=== PATIENT | male | born 1980 | race Hispanic/Latino ===

== ENCOUNTER 2019-07-21 16:54 | Emergency (ER) | payer OTHER ==
[2019-07-21] MEDS ORDERED: CEFAZOLIN/SWI 1gm 1 GM/10 ML SYR ONE (17:20)
[2019-07-21] MEDS ORDERED: ONDANSETRON 4 MG/2 ML VIAL ONE (17:20)
[2019-07-21] MEDS ORDERED: MORPHINE 4 MG/ML SYR ONE (17:20)
[2019-07-21] MEDS ORDERED: HYDROMORPHONE HCL 1 MG/ML INJ ONE (18:06)
--- NOTE | 2019-07-21 18:09 | ER ---
Nurse's Notes [facility] Name: Rudolph Lacey Age: 39 yrs Sex: Male : 1980 Arrival Date: 07/21/2019 Time: 16:55 Bed 4 Private MD: Diagnosis: Colles' fracture of left radius-open Presentation: 07/21 17:02 Presenting complaint: Patient states: Fell at work today, injured left wrist. ROM is rb1 limited. Deformity noted to the left wrist with minimal bleeding. Transition of care: patient was not received from another setting of care. Onset of symptoms was July 21, 2019. Risk Assessment: Do you want to hurt yourself or someone else? Patient reports no desire to harm self or others. Initial Sepsis Screen: Does the patient meet any 2 criteria? No. Patient's initial sepsis screen is negative. Does the patient have a suspected source of infection? No. Patient's initial sepsis screen is negative. Care prior to arrival: None. 17:02 Method Of Arrival: Ambulatory [facility] 17:02 Acuity: TRISH 3 rb1 Triage Assessment: 17:07 General: Appears in no apparent distress. Behavior is calm, cooperative, appropriate tw2 for age. Pain: Complains of pain in LEFT wrist. Musculoskeletal: Circulation, motion, and sensation intact. Injury Description: Deformity sustained to right arm. Historical: - Allergies: 17:03 No Known Allergies; rb1 - Home Meds: 17:03 None [Active]; rb1 - PMHx: 17:03 None; rb1 - PSHx: 17:03 None; rb1 - Immunization history:: Adult Immunizations up to date. - Social history:: Smoking status: Patient/guardian denies using tobacco. - Ebola Screening: : Patient negative for fever greater than or equal to 101.5 degrees Fahrenheit, and additional compatible Ebola Virus Disease symptoms. Screenin:06 Abuse screen: Denies threats or abuse. Nutritional screening: No deficits noted. tw2 Tuberculosis screening: No symptoms or risk factors identified. Fall Risk None identified. Assessment: 17:08 Reassessment: Patient appears in no apparent distress at this time. General: Appears in tw2 no apparent distress. Behavior is calm, cooperative, appropriate for age. General: Appears in no apparent distress. Behavior is calm, cooperative, appropriate for age. Pain: Complains of pain in left arm and left wrist. Neuro: Level of Consciousness is awake, alert, obeys commands, Oriented to person, place, time, situation. Cardiovascular: Patient's skin is warm and dry. Respiratory: Airway is patent Respiratory effort is even, unlabored, Respiratory pattern is regular, symmetrical. GI: No signs and/or symptoms were reported involving the gastrointestinal system. : No signs and/or symptoms were reported regarding the genitourinary system. EENT: No signs and/or symptoms were reported regarding the EENT system. Derm: No signs and/or symptoms reported regarding the dermatologic system. Musculoskeletal: Circulation, motion, and sensation intact. LEFT wrist. 17:14 Injury Description: Laceration sustained to left wrist a small amount of bleeding noted tw2 at this time. 18:01 Reassessment: Patient appears in no apparent distress at this time. No changes from tw2 previously documented assessment. Patient and/or family updated on plan of care and expected duration. Pain level reassessed. Patient is alert, oriented x 3, equal unlabored respirations, skin warm/dry/pink. 19:05 Reassessment: Patient appears in no apparent distress at this time. Patient and/or cc3 family updated on plan of care and expected duration. Pain level reassessed. Patient is alert, oriented x 3, equal unlabored respirations, skin warm/dry/pink. Received this male patient from morning shift RN Imani as a case of Colles' fracture of left radius. With IV cannula gauge 20 at the right ACV saline locked. Patient for transfer to [facility] and report was called already just waiting for EMS as endorsed. Patient states feeling better. Patient states symptoms have improved. General: Appears in no apparent distress. comfortable, Behavior is calm, cooperative, appropriate for age. Pain: Complains of pain in left wrist Pain currently is 3 out of 10 on a pain scale. Quality of pain is described as aching. Neuro: Level of Consciousness is awake, alert, obeys commands. Neuro: Level of Consciousness is awake, alert, obeys commands, Oriented to person, place, time, situation, Appropriate for age. Cardiovascular: Patient's skin is warm and dry. Respiratory: Airway is patent Respiratory effort is even, unlabored, Respiratory pattern is regular, symmetrical, Breath sounds are clear bilaterally. GI: Abdomen is round non-distended, Bowel sounds present X 4 quads. Abd is soft and non tender X 4 quads. : No signs and/or symptoms were reported regarding the genitourinary system. EENT: No signs and/or symptoms were reported regarding the EENT system. Derm: Skin is intact, is healthy with good turgor, Skin is pink, warm \T\ dry. normal. Musculoskeletal: Circulation, motion, and sensation intact. Range of motion: limited in left hand and dorsum of left hand and left wrist. Injury Description:. 19:15 Reassessment: Patient appears in no apparent distress at this time. Patient and/or cc3 family updated on plan of care and expected duration. Pain level reassessed. Patient is alert, oriented x 3, equal unlabored respirations, skin warm/dry/pink. [facility] came for patient transport. Patient left ER vitally stable by EMS stretcher. No valuables left in the patient's room. Patient states feeling better. Patient states symptoms have improved. Vital Signs: 17:00 BP 160 / 105; Pulse 81; Resp 20; Temp 97.8(O); Pulse Ox 98% on R/A; Weight 111.13 kg rb1 (R); Height 6 ft. 1 in. (185.42 cm) (R); Pain 10/10; 18:13 BP 144 / 90; Pulse 85; Resp 17; Pulse Ox 100% on R/A; Pain 9/10; tw2 19:05 BP 160 / 95; Pulse 86; Resp 18 S; Temp 98.1(O); Pulse Ox 100% on R/A; Pain 3/10; cc3 17:00 Body Mass Index 32.32 (111.13 kg, 185.42 cm) rb1 ED Course: 16:55 Patient arrived in ED. rg4 17:02 Triage completed. rb1 17:03 Rosy Burns FNP-C is PHCP. kb 17:03 Sarthak Acosta MD is Attending Physician. kb 17:03 Arm band placed on right wrist. rb1 17:06 Imani Mcgraw RN is Primary Nurse. tw2 17:06 Rommel Gonsales MD is Attending Physician. ma2 17:06 Bed in low position. Call light in reach. tw2 17:23 Inserted saline lock: 20 gauge in right antecubital area, using aseptic technique. tw2 ,using aseptic technique. by LIZZY Diallo. 17:56 Wrist Left (3 View) XRAY In Process Unspecified. EDMS 17:56 Forearm Left XRAY In Process Unspecified. EDMS 17:56 Hand Right 3 View XRAY In Process Unspecified. EDMS 18:51 pt accepted in transfer to [facility] ER. bd 18:54 Report given to LIZZY Talley at [facility]. tw2 18:54 Patient transferred, IV remains in place. tw2 19:04 Report given to LIZZY Laboy. tw2 19:15 No provider procedures requiring assistance completed. cc3 Administered Medications: 17:23 Drug: Zofran 4 mg Route: IVP; Site: right antecubital; tw2 18:12 Follow up: Response: No adverse reaction tw2 17:25 Drug: morphine 4 mg {Note: rass 0.} Route: IVP; Site: right antecubital; tw2 18:12 Follow up: Response: No adverse reaction; Pain is unchanged, physician notified; RASS: tw2 Alert and Calm (0) 17:27 Drug: Ancef 1 grams Route: IVPB; Site: right antecubital; tw2 17:35 Follow up: Response: No adverse reaction; IV Status: Completed infusion tw2 18:08 Drug: Dilaudid 1 mg Route: IVP; Site: right antecubital; tw2 18:55 Follow up: Response: No adverse reaction; Pain is decreased; RASS: Alert and Calm (0) tw2 Outcome: 18:08 ER care complete, transfer ordered by . ma2 19:15 Transferred by ground EMS to [facility], Transfer form completed. X-rays sent cc3 w/ patient. 19:15 Condition: stable 19:15 Instructed on the need for transfer, Demonstrated understanding of instructions. 19:17 Patient left the ED. cc3 Signatures: Dispatcher [employer] EDMS Rosy Burns, GARDENING MANAGER-C GARDENING MANAGER-Toyin Mendiola Rebecca, RN RN rb1 Imani Mcgraw RN RN tw2 Lexy Gordillo4 Rommel Gonsales MD MD maMichelle Mariano cc3 Reina Taylor RN RN ca1 Corrections: (The following items were deleted from the chart) 17:05 17:02 Acuity: TRISH 4 rb1 rb1 17:07 17:02 Presenting complaint: Patient states: Fell at work today, injured left wrist. ROM rb1 is limited. rb1 17:30 17:23 Inserted saline lock: 22 gauge in right antecubital area, using aseptic tw2 technique. ,using aseptic technique. by LIZZY Diallo ca1 17:44 17:08 Derm: No signs and/or symptoms reported regarding the dermatologic system. tw2 tw2
--- NOTE | 2019-07-21 18:09 | EDPHYS ---
Physician Documentation [facility] Name: Rudolph Lacey Age: 39 yrs Sex: Male : 1980 Arrival Date: 07/21/2019 Time: 16:55 Bed 4 Private MD: ED Physician Rommel Gonsales HPI: 07/21 17:06 This 39 yrs old Male presents to ER via Ambulatory with complaints of Wrist kb Injury. 17:06 The patient or guardian reports decreased range of motion, deformity, injury, pain, kb swelling, tenderness. The complaints affect the left wrist diffusely. Context: The problem was sustained at work, resulted from a fall, on an outstretched hand. Onset: The symptoms/episode began/occurred just prior to arrival. Modifying factors: The symptoms are alleviated by nothing, the symptoms are aggravated by movement. Associated signs and symptoms: The patient has no apparent associated signs or symptoms. The patient has not experienced similar symptoms in the past. The patient has not recently seen a physician. Pt reports he fell at work and injured left wrist. +pulses, brisk cap refill. Also complains of pain to right hand. Historical: - Allergies: 17:03 No Known Allergies; rb1 - Home Meds: 17:03 None [Active]; rb1 - PMHx: 17:03 None; rb1 - PSHx: 17:03 None; rb1 - Immunization history:: Adult Immunizations up to date. - Social history:: Smoking status: Patient/guardian denies using tobacco. - Ebola Screening: : Patient negative for fever greater than or equal to 101.5 degrees Fahrenheit, and additional compatible Ebola Virus Disease symptoms. ROS: 17:07 Constitutional: Negative for fever, chills, and weight loss, ENT: Negative for injury, kb pain, and discharge, Neck: Negative for injury, pain, and swelling, Cardiovascular: Negative for chest pain, palpitations, and edema, Respiratory: Negative for shortness of breath, cough, wheezing, and pleuritic chest pain, Abdomen/GI: Negative for abdominal pain, nausea, vomiting, diarrhea, and constipation, Back: Negative for injury and pain, Neuro: Negative for headache, weakness, numbness, tingling, and seizure. 17:07 MS/extremity: Positive for injury or acute deformity, decreased range of motion, deformity, pain, swelling, tenderness, of the left wrist. 17:10 MS/extremity: Positive for pain, of the dorsum of right hand. kb Exam: 17:07 Constitutional: This is a well developed, well nourished patient who is awake, alert, kb and in no acute distress. Head/Face: Normocephalic, atraumatic. Neck: Trachea midline, no thyromegaly or masses palpated, and no cervical lymphadenopathy. Supple, full range of motion without nuchal rigidity, or vertebral point tenderness. No Meningismus. Chest/axilla: Normal chest wall appearance and motion. Nontender with no deformity. No lesions are appreciated. Cardiovascular: Regular rate and rhythm with a normal S1 and S2. No gallops, murmurs, or rubs. Normal PMI, no JVD. No pulse deficits. Respiratory: Lungs have equal breath sounds bilaterally, clear to auscultation and percussion. No rales, rhonchi or wheezes noted. No increased work of breathing, no retractions or nasal flaring. Abdomen/GI: Soft, non-tender, with normal bowel sounds. No distension or tympany. No guarding or rebound. No evidence of tenderness throughout. Neuro: Awake and alert, GCS 15, oriented to person, place, time, and situation. Cranial nerves II-XII grossly intact. Motor strength 5/5 in all extremities. Sensory grossly intact. Cerebellar exam normal. Normal gait. 17:07 Musculoskeletal/extremity: Extremities: grossly normal except: noted in the left wrist: decreased ROM, deformity, laceration, pain, swelling, tenderness, ROM: limited active range of motion due to pain, in the left wrist, Circulation is intact in all extremities. Sensation intact. 17:07 Skin: injury, laceration(s), the wound is approximately 1 cm(s), of the left wrist, that can be described as clean, linear, with mild bleeding. Vital Signs: 17:00 BP 160 / 105; Pulse 81; Resp 20; Temp 97.8(O); Pulse Ox 98% on R/A; Weight 111.13 kg rb1 (R); Height 6 ft. 1 in. (185.42 cm) (R); Pain 10/10; 18:13 BP 144 / 90; Pulse 85; Resp 17; Pulse Ox 100% on R/A; Pain 9/10; tw2 19:05 BP 160 / 95; Pulse 86; Resp 18 S; Temp 98.1(O); Pulse Ox 100% on R/A; Pain 3/10; cc3 17:00 Body Mass Index 32.32 (111.13 kg, 185.42 cm) rb1 MDM: 17:03 Patient medically screened. kb 18:06 Differential diagnosis: open fracture. Data reviewed: vital signs, nurses notes. ma2 Counseling: I had a detailed discussion with the patient and/or guardian regarding: the historical points, exam findings, and any diagnostic results supporting the discharge/admit diagnosis, the presence of at least one elevated blood pressure reading (>120/80) during this emergency department visit, the need to transfer to another facility. ED course: no ability to take care of open fracture in our er, will transfer for higher level of caer . 18:27 ED course: accepted by dr. Good. ma2 07/21 17:03 Order name: Wrist Left (3 View) XRAY 07/21 17:05 Order name: Forearm Left XRAY 07/21 17:11 Order name: Hand Right 3 View XRAY 07/21 17:17 Order name: IV Start; Complete Time: 17:23 kb Administered Medications: 17:23 Drug: Zofran 4 mg Route: IVP; Site: right antecubital; tw2 18:12 Follow up: Response: No adverse reaction tw2 17:25 Drug: morphine 4 mg {Note: rass 0.} Route: IVP; Site: right antecubital; tw2 18:12 Follow up: Response: No adverse reaction; Pain is unchanged, physician notified; RASS: tw2 Alert and Calm (0) 17:27 Drug: Ancef 1 grams Route: IVPB; Site: right antecubital; tw2 17:35 Follow up: Response: No adverse reaction; IV Status: Completed infusion tw2 18:08 Drug: Dilaudid 1 mg Route: IVP; Site: right antecubital; tw2 18:55 Follow up: Response: No adverse reaction; Pain is decreased; RASS: Alert and Calm (0) tw2 Disposition: 18:06 Co-signature as Attending Physician, Rommel Gonsales MD. ma2 Disposition: 07/21/19 18:08 Transfer ordered to Other Acute Care Facility. Diagnosis is Colles' fracture of left radius - open. - Reason for transfer: Higher level of care. - Accepting physician is [facility]. - Condition is Stable. - Problem is new. - Symptoms are unchanged. Signatures: Dispatcher [employer] EDRosy Sena, HEALTHCARE ADMINISTRATIVE ASSISTANT-C HEALTHCARE ADMINISTRATIVE ASSISTANT-Ckb Lolis [place], RN RN rb1 Imani Mcgraw RN RN tw2 Rommel Gonsales MD MD ma2 Michelle Vallejo cc3 Corrections: (The following items were deleted from the chart) 17:10 17:07 MS/extremity: Positive for injury or acute deformity, decreased range of motion, kb deformity, pain, swelling, tenderness, of the left wrist, kb 17:10 17:10 MS/extremity: Positive for pain, of the dorsum of left hand, kb kb 17:11 17:06 Pt reports he fell at work and injured left wrist. +pulses, brisk cap refill. kb kb 19:17 18:08 07/21/2019 18:08 Transfer ordered to Other Acute Care Facility. Diagnosis is cc3 Colles' fracture of left radius - open. Reason for transfer: Higher level of care. Accepting physician is [facility]. Condition is Stable. Problem is new. Symptoms are unchanged. ma2
--- NOTE | 2019-07-21 18:18 | RAD REPORT ---
EXAM DESCRIPTION: RAD - Hand Right 3 View - 07/21/2019 5:54 pm CLINICAL HISTORY: Fall, right hand pain COMPARISON: None. FINDINGS: No fractures identified. The base of the fifth metacarpal has been dislocated from the ham ate. Base of the fourth metacarpal appears to still be normally position. No carpal bone alignment ab normality. Joints are unremarkable otherwise. No periosteal reaction. No foreign body or other soft t issue abnormality. IMPRESSION: Ulna side dislocation of the fifth metacarpal base without fracture. Fourth metacarpal base appears be normally positioned.
--- NOTE | 2019-07-21 18:20 | RAD REPORT ---
EXAM DESCRIPTION: RAD - Wrist Left 3 View - 07/21/2019 5:54 pm CLINICAL HISTORY: Fall, left wrist pain, left arm pain COMPARISON: None. FINDINGS: Transverse fracture is present in the distal shaft of the radius. There is comminution at the fracture site. There is dorsal displacement 1 full shaft width. Only a few mm of overlap noted. T here is 20 degrees ventral angulation of the distal radius fracture fragment. Carpal bones maintain p ositioning to the angulated distal radius. No fracture of the distal ulna identified. No carpal bone fracture or dislocation. No foreign body. IMPRESSION: Comminuted transverse fracture of the distal left radial shaft with dorsal displacement of the distal fracture fragment and ventral angulation.
--- NOTE | 2019-07-21 18:21 | RAD REPORT ---
EXAM DESCRIPTION: RAD - Forearm Left - 07/21/2019 5:54 pm CLINICAL HISTORY: Fall, arm pain and trauma COMPARISON: None. FINDINGS: Fracture of the distal left radial shaft is present. There is comminution along the fractu re plane. One full shaft width dorsal displacement of the distal radius fracture fragment is present with 20 degree angulation deformity. There is slight bowing of the ulna. A greenstick fracture would be possible. No periosteal reaction. Carpal bones remain position to the angulated radius. No foreign body or other soft tissue abnormality. IMPRESSION: Distal left radius shaft fracture with comminution along the fracture plane. Dorsal disp lacement and ventral angulation are present.
[2019-07-21 19:35] VITALS: TEMP 97.8
[2019-07-21 19:36] VITALS: BP 144/90; O2SAT 100
== END 2019-07-21 19:17 ==
LOC: ER 16:54
DX: S52.532A Colles' fracture of left radius, initial encounter for closed fracture (principal); W01.0XXA Fall on same level from slipping, tripping and stumbling without subsequent striking against object, initial encounter; Y93.9 Activity, unspecified; Y92.89 Other specified places as the place of occurrence of the external cause; Y99.0 Civilian activity done for income or pay
CPT/HCPCS: 73130; 73090; 73110; 96375; 96374; 99285; J1170; J0690; J2405